=== PATIENT | male | born 1930 | race Caucasian/White ===

== ENCOUNTER → 2017-01-18 | Outpatient (CLI) | payer MEDICARE, BC | END | disposition home or self-care (01) | LOC: PCVCIMAG 10:26 | PROVIDERS: ATTEND Internal Medicine Cardiovascular Disease | DX: I65.23 Occlusion and stenosis of bilateral carotid arteries (principal); I77.9 Disorder of arteries and arterioles, unspecified; I10 Essential (primary) hypertension; E78.00 Pure hypercholesterolemia, unspecified; I47.1 Supraventricular tachycardia | CPT/HCPCS: 93005; 93880; G0463 ==

== ENCOUNTER → 2017-03-09 | Outpatient (CLI) | payer MEDICARE, BC | END | disposition home or self-care (01) | LOC: PCVCCLINIC 13:08 | PROVIDERS: ATTEND Internal Medicine Cardiovascular Disease | DX: I65.29 Occlusion and stenosis of unspecified carotid artery (principal); I48.0 Paroxysmal atrial fibrillation; I10 Essential (primary) hypertension; I25.10 Atherosclerotic heart disease of native coronary artery without angina pectoris; E78.00 Pure hypercholesterolemia, unspecified; I47.1 Supraventricular tachycardia; Z79.82 Long term (current) use of aspirin; Z79.899 Other long term (current) drug therapy; Z87.891 Personal history of nicotine dependence | CPT/HCPCS: 93005; G0463 ==

== ENCOUNTER → 2017-04-26 | Outpatient (CLI) | payer MEDICARE, BC | END | disposition home or self-care (01) | LOC: PCVCCLINIC 15:43 | PROVIDERS: ATTEND Internal Medicine Cardiovascular Disease | DX: I48.91 Unspecified atrial fibrillation (principal); I25.10 Atherosclerotic heart disease of native coronary artery without angina pectoris; I10 Essential (primary) hypertension; I65.23 Occlusion and stenosis of bilateral carotid arteries; E78.00 Pure hypercholesterolemia, unspecified; R00.1 Bradycardia, unspecified; Z95.5 Presence of coronary angioplasty implant and graft; Z87.891 Personal history of nicotine dependence; Z79.899 Other long term (current) drug therapy; Z79.82 Long term (current) use of aspirin | CPT/HCPCS: 80061; 93005; G0463 ==

== ENCOUNTER → 2017-08-08 | Outpatient (CLI) | payer MEDICARE, BC | END | disposition home or self-care (01) | LOC: PCVCCLINIC 14:16 | PROVIDERS: ATTEND Internal Medicine Cardiovascular Disease | DX: I25.10 Atherosclerotic heart disease of native coronary artery without angina pectoris (principal); I48.0 Paroxysmal atrial fibrillation; I10 Essential (primary) hypertension; E78.00 Pure hypercholesterolemia, unspecified; I77.9 Disorder of arteries and arterioles, unspecified; Z87.891 Personal history of nicotine dependence; Z79.899 Other long term (current) drug therapy | CPT/HCPCS: 93005; G0463 ==

== ENCOUNTER 2018-03-05 12:16 | Outpatient (CLI) | payer MEDICARE, BC ==
[2018-03-07] MEDS ORDERED: CLOPIDOGREL BISULFATE 75 MG TABLET (07:26)
[2018-03-07] MEDS ORDERED: IV NORMAL SALINE 500ML BAG 500 ML (07:26)
[2018-03-07] MEDS ORDERED: ASPIRIN 325 MG TABLET (07:26)
[2018-03-07] MEDS ORDERED: DIAZEPAM 10 MG TABLET. (07:26)
[2018-03-07] MEDS ORDERED: IOHEXOL 350 MG/ML 100 ML VIAL. (07:47)
[2018-03-07] MEDS ORDERED: HEPARIN for ARTERIAL LINE 1,500 ML (07:47)
[2018-03-07] MEDS ORDERED: LIDOCAINE 1% Multi-Dose 50 ML VIAL. (07:47)
[2018-03-07] MEDS ORDERED: IODIXANOL 270 MG/ML 100 ML VIAL. (07:48)
[2018-03-07] MEDS ORDERED: MIDAZOLAM HCL/PF 2 MG/2 ML VIAL. ×2 (07:53→09:14)
[2018-03-07] MEDS ORDERED: EPINEPHrine 1 MG/ML VIAL (07:53)
[2018-03-07] MEDS ORDERED: HEPARIN SODIUM 5,000 UNIT/ML VIAL for PCVC. (07:53)
[2018-03-07] MEDS ORDERED: fentaNYL PF VIAL 100 MCG/2 ML VIAL ×2 (07:54→09:14)
[2018-03-07] MEDS ORDERED: hydrALAZINE 20 MG/ML VIAL. (09:14)
[2018-03-07] MEDS ORDERED: EPTIFIBATIDE BOLUS 2,000 MCG/ML 10ML VIAL. IV (09:14)
== END 2018-03-07 | disposition home or self-care (01) ==
LOC: PCVCCLINIC 12:16 → PCVCINTER 03-07 07:16
DX: I70.213 Atherosclerosis of native arteries of extremities with intermittent claudication, bilateral legs (principal); I25.10 Atherosclerotic heart disease of native coronary artery without angina pectoris; I70.1 Atherosclerosis of renal artery; I70.0 Atherosclerosis of aorta; I47.1 Supraventricular tachycardia; I48.0 Paroxysmal atrial fibrillation; I10 Essential (primary) hypertension
CPT/HCPCS: 36246; 36252; 75716; 76937; 93458; 99152; 99153; C1751; C1769; C1894; J0171; J0360; J1327; J1644; J2250; J3010; J7040; Q9967

== ENCOUNTER → 2018-03-05 | Outpatient (CLI) | payer MEDICARE, BC ==
[~2018-03-05] MED LIST: REGADENOSON 0.4 MG/5 ML DISP.SYRIN. IV
== END | disposition home or self-care (01) ==
LOC: PCVCIMAG 07:53
DX: I65.23 Occlusion and stenosis of bilateral carotid arteries (principal); I25.10 Atherosclerotic heart disease of native coronary artery without angina pectoris; I48.0 Paroxysmal atrial fibrillation; I10 Essential (primary) hypertension; I07.1 Rheumatic tricuspid insufficiency; I73.9 Peripheral vascular disease, unspecified; I70.8 Atherosclerosis of other arteries; R10.32 Left lower quadrant pain; Z87.891 Personal history of nicotine dependence; Z79.899 Other long term (current) drug therapy
CPT/HCPCS: 76882; 78452; 93017; 93306; 93880; 93925; A9500; G0463; J2785

== ENCOUNTER → 2018-07-09 | Outpatient (CLI) | payer MEDICARE, BC | END | disposition home or self-care (01) | LOC: PCVCCLINIC 11:34 | PROVIDERS: ATTEND Internal Medicine Cardiovascular Disease | DX: Z01.818 Encounter for other preprocedural examination (principal); I25.10 Atherosclerotic heart disease of native coronary artery without angina pectoris; I73.9 Peripheral vascular disease, unspecified; I10 Essential (primary) hypertension; I48.0 Paroxysmal atrial fibrillation; E78.00 Pure hypercholesterolemia, unspecified; D68.59 Other primary thrombophilia; Z87.891 Personal history of nicotine dependence; Z79.899 Other long term (current) drug therapy | CPT/HCPCS: 80061; 93005; G0463 ==

== ENCOUNTER → 2019-01-21 | Outpatient (CLI) | payer MEDICARE, BC | END | disposition home or self-care (01) | LOC: PCVCCLINIC 12:54 | PROVIDERS: ATTEND Internal Medicine Cardiovascular Disease | DX: I25.10 Atherosclerotic heart disease of native coronary artery without angina pectoris (principal); I48.0 Paroxysmal atrial fibrillation; I10 Essential (primary) hypertension; I73.9 Peripheral vascular disease, unspecified; I87.2 Venous insufficiency (chronic) (peripheral); E78.00 Pure hypercholesterolemia, unspecified; R60.9 Edema, unspecified; Z87.891 Personal history of nicotine dependence; Z79.899 Other long term (current) drug therapy | CPT/HCPCS: 36415; 80061; 93005; G0463 ==

== ENCOUNTER → 2019-03-03 | Outpatient (CLI) | payer MEDICARE, BC ==
--- NOTE | 2019-03-03 16:55 | PCVCIMAG ---
EXAM: BILATERAL LOWER EXTREMITY ARTERIAL DUPLEX INDICATION: Peripheral Arterial Disease. Leg pain. FINDINGS: Right Leg: Common femoral and profunda femoral arteries are patent. Short segment subtotal occlusion distal [place] superficial femoral artery. Mild stenosis upper popliteal artery. The anterior tibial, peroneal, and posterior tibial arteries are patent. Left Le% stenosis common femoral artery. Profunda femoral artery is patent. Segmental occlusion mid [place] superficial femoral artery as was seen on prior angiogram. Heavy calcific plaque distal superficial femoral artery also seen on prior angiogram with areas of occlusion. Refilling of the popliteal artery without flow-limiting stenosis. Occlusion throughout the anterior tibial artery. The peroneal and posterior tibial arteries are patent. IMPRESSION: Short segment occlusion distal [place] right superficial femoral artery. Mild stenosis upper right popliteal artery. Areas of segmental occlusion mid/distal left superficial femoral artery as seen on prior angiogram. 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 LOC:[place] [id number]
--- NOTE | 2019-03-03 20:54 | PCVCIMAG ---
APPROVED REPORT Study performed: 03/03/2019 13:46:47 EXAM: Comprehensive 2D, Doppler, and color-flow Echocardiogram Patient Location: Echo lab Status: routine BSA: 2.13 HR: 66 bpmBP: 144/62 mmHg Rhythm: NSR Other Information Study Quality: Adequate Risk Factors: Cardiac Risk Factors: HTN Indications CAD parox afib 2D Dimensions IVSd: 14.20 (7-11mm) LVDd: 39.73 mm PWd: 12.70 (7-11mm)Ascending Ao: 37.86 (22-36mm) LVDs: 27.30 (25-40mm) Left Atrium: 46.10 (27-40mm) Aortic Root: 35.65 mm LV Single Plane 4CH: 57.54 % LV Single Plane 2CH: 53.65 % Biplane EF: 55.9 % Volumes Left Atrial Volume (Systole) Single Plane 4CH: 90.87 mLSingle Plane 2CH: 86.87 mL LA ESV Index: 44.00 mL/m2 Aortic Valve AoV Peak Andrez.: 1.62 m/s AO Peak Gr.: 10.43 mmHgLVOT Max P.95 mmHg LVOT Max V: 1.22 m/s Mitral Valve E/A Ratio: 0.8 MV Decel. Time: 223.82 ms MV E Max Andrez.: 0.60 m/s MV A Andrez.: 0.71 m/s IVRT: 107.27 ms Pulmonary Valve PV Peak Andrez.: 0.91 m/sPV Peak Gr.: 3.29 mmHg Pulmonary Vein P Vein S: 0.27 m/sP Vein A: 0.30 m/s P Vein D: 0.40 m/sP Vein A Dur.: 152.2 msec P Vein S/D Ratio: 0.68 Tricuspid Valve TR Peak Andrez.: 3.05 m/s TR Peak Gr.: 37.27 mmHg TV Vmax: 0.51 m/s Left Ventricle The left ventricle is normal size. There is normal LV segmental wall motion. Mild concentric left ventricular hypertrophy. Left ventricular systolic function is normal. The left ventricular ejection fraction is within the normal range. LVEF is 55-60%. Grade I - abnormal relaxation pattern. Right Ventricle The right ventricle is normal size. The right ventricular systolic function is normal. Atria Left atrium is moderately dilated. Right atrium is mildly dilated. Aortic Valve The aortic valve is normal in structure. No aortic regurgitation is present. There is no aortic valvular stenosis. Mitral Valve The mitral valve is normal in structure. There is no mitral valve regurgitation noted. No evidence of mitral valve stenosis. Tricuspid Valve The tricuspid valve is normal in structure. Mild to moderate tricuspid regurgitation with PAP of 47 mmHg. Pulmonic Valve The pulmonary valve is normal in structure. Trace pulmonic regurgitation. Great Vessels The aortic root is normal in size. IVC is normal in size and collapses >50% with inspiration. Pericardium There is no pericardial effusion. There is no pleural effusion. <Conclusion> The left ventricle is normal size. Mild concentric left ventricular hypertrophy. LVEF is 55-60%. Grade I - abnormal relaxation pattern. The right ventricle is normal size. Left atrium is moderately dilated. Right atrium is mildly dilated. The aortic valve is normal in structure. There is no mitral valve regurgitation noted. Mild to moderate tricuspid regurgitation with PAP of 47 mmHg. The aortic root is normal in size. There is no pericardial effusion.
== END | disposition home or self-care (01) ==
LOC: PCVCIMAG 08:00
PROVIDERS: ATTEND Internal Medicine Cardiovascular Disease
DX: I07.1 Rheumatic tricuspid insufficiency (principal); I11.9 Hypertensive heart disease without heart failure; I70.8 Atherosclerosis of other arteries; I73.9 Peripheral vascular disease, unspecified; I48.0 Paroxysmal atrial fibrillation
CPT/HCPCS: 93306; 93925

== ENCOUNTER → 2019-03-13 | Outpatient (CLI) | payer MEDICARE, BC ==
--- NOTE | 2019-03-13 17:40 | PCVCIMAG ---
EXAM: BILATERAL RENAL ULTRASOUND INDICATION: Flank pain. Decreased urine output. FINDINGS: Right kidney: Length measures 12.5 cm. No hydronephrosis or extensive renal scarring. 2.6 x 2.8 x 3.1 cm benign cyst lower pole. Left kidney: Length measures 11.3 cm. No hydronephrosis or extensive renal scarring. Bladder: No obvious abnormalities. Prevoid volume is 641 cc and postvoid volume is 291 cc. IMPRESSION: No hydronephrosis. Note is made of mild post void residual. LOC:[id number]
== END | disposition home or self-care (01) ==
LOC: PCVCIMAG 09:50
PROVIDERS: ATTEND Internal Medicine Cardiovascular Disease
DX: R10.9 Unspecified abdominal pain (principal)
CPT/HCPCS: 76770

== ENCOUNTER → 2019-10-13 | Outpatient (CLI) | payer MEDICARE, BC | END | disposition home or self-care (01) | LOC: PCVCCLINIC 15:49 | PROVIDERS: ATTEND Internal Medicine Cardiovascular Disease | DX: I25.10 Atherosclerotic heart disease of native coronary artery without angina pectoris (principal); I48.0 Paroxysmal atrial fibrillation; I73.9 Peripheral vascular disease, unspecified; I10 Essential (primary) hypertension; D68.59 Other primary thrombophilia; R94.31 Abnormal electrocardiogram [ECG] [EKG]; Z86.79 Personal history of other diseases of the circulatory system; Z87.891 Personal history of nicotine dependence; Z79.82 Long term (current) use of aspirin; Z79.899 Other long term (current) drug therapy | CPT/HCPCS: 93005; G0463 ==